=== PATIENT | male | born 1945 | race American Indian/Alaskan Native ===

== ENCOUNTER 2018-01-27 09:22 | Day surgery (SDC) | payer MEDICARE ==
[~2018-01-27 09:22] MED LIST: ANCEF/STERILE WATER 2 GM/20 ML 2 GM/20 ML SYRINGE IV NR; NACL 0.9% 1000 ML 1,000 ML IV SCH
[2018-01-27 10:37] LABS: Basophils # (Auto) 0.1 K/mm3 (0.0-0.1); Basophils % (Auto) 0.9 % (0.0-1.8); Eosinophils # (Auto) 0.2 K/mm3 (0.0-0.4); Eosinophils % (Auto) 2.9 % (0.0-4.3); Hematocrit 39.4 % (35.5-45.6); Hemoglobin 13.9 gm/dl (11.8-15.2); Lymphocytes % (Auto) 26.9 % (13.4-35.0); Mean Corpuscular HGB Conc 35 % (32-34); Mean Corpuscular Hemoglobin 33 pg (28-32); Mean Corpuscular Volume 94 fl (84-94); Monocytes # (Auto) 0.4 K/mm3 (0.0-0.8); Monocytes % (Auto) 5.8 % (0.0-7.3); Platelet Count 176 K/mm3 (140-440); Red Blood Count 4.21 M/mm3 (3.65-5.03); Red Cell Distribution Width 12.7 % (13.2-15.2)
[2018-01-27 10:50] LABS: INR 0.9 (0.87-1.13)
[2018-01-27 10:51] LABS: Partial Thromboplastin Time 25.2 Sec. (24.2-36.6)
[2018-01-27 11:01] LABS: BUN/Creatinine Ratio 17; Blood Urea Nitrogen 15 mg/dL (9-20); Calcium 9.1 mg/dL (8.4-10.2); Hemolysis Index 3
[2018-01-27] MEDS ORDERED: HEPARIN/NS 5000 UNIT/500ML(CATH LAB) 1,000 ML IR ONE (12:15)
[2018-01-27] MEDS ORDERED: HEPARIN 10,000 UNITS/10 ML ONE (12:15)
[2018-01-27] MEDS ORDERED: XYLOCAINE 2% INFILTRATI ONE (12:15)
--- NOTE | 2018-01-27 12:22 | Short Stay Summary ---
Short Stay Documentation Date of service: 01/27/18 - History Principal diagnosis: bilateral hand numbness and tingling episodic in nature H&P: obtained from office - Allergies and Medications Current Medications: Allergies CRAWFISH Adverse Reaction (Uncoded 12/29/12 07:58) Unknown Home Medications Medication Instructions Recorded Confirmed Last Taken Type Aspirin [Aspirin BABY CHEW TAB] 81 mg PO ONCE 12/23/12 01/27/18 01/26/18 History 81mg Multivitamin [Multi-Vitamin Daily] 1 tab PO DAILY 12/23/12 01/27/18 01/26/18 History 1 tab Simvastatin 40 mg PO QHS 12/23/12 01/27/18 01/26/18 History 40mg hydroCHLOROthiazide [HCTZ] 25 mg PO QDAY 12/23/12 01/27/18 01/26/18 History 25mg Gabapentin [Neurontin] 300 mg PO BID 01/27/18 01/27/18 01/26/18 History 300mg Krill/Om-3/Dha/Epa/Phospho/Ast 1 cap PO DAILY 01/27/18 01/27/18 01/26/18 History [Megared [place]-3 Krill Oil Sfgl] 1 cap Latanoprost 0.005% 1 drop INTRAOCULA 01/27/18 01/26/18 History 1 drop Tamsulosin [Flomax] 0.4 mg PO DAILY 01/27/18 01/27/18 01/26/18 History 0.4mg amLODIPine [Norvasc] 5 mg PO DAILY 01/27/18 01/27/18 01/27/18 08:00 History 5mg metFORMIN [Glucophage] 500 mg PO DAILY 01/27/18 01/27/18 01/26/18 History 500mg Active Medications Cefazolin Sodium (Ancef/Sterile Water 2 Gm/20 Ml) 2 gm in 20 mls @ 80 mls/hr IV PREOP NR; Protocol Stop: 01/27/18 23:59 Sodium Chloride (Nacl 0.9% 1000 Ml) 1,000 mls @ 42 mls/hr IV DIRECT MEAGAN Last Admin: 01/27/18 11:28 Dose: 42 mls/hr - Brief post op/procedure progress note Date of procedure: 01/27/18 Pre-op diagnosis: numbness and tingling intermittently in his hands, concern for vasculitis Post-op diagnosis: same Procedure: Left upper extremity angiogram with provocation Anesthesia: local Surgeon: GAIL GARZA Estimated blood loss: minimal Pathology: none Condition: stable - Disposition Condition at discharge: Good Disposition: [id number] TO HOME OR SELFCARE Short Stay Discharge Plan Activity: advance as tolerated Weight Bearing Status: Weight Bear as Tolerated Diet: regular Wound: keep clean and dry, per your surgeon's advice Follow up with: PRIMARY CARE, [Primary Care Provider] - 7 Days
[2018-01-27] MEDS ORDERED: VERSED ONE (12:34)
[2018-01-27] MEDS ORDERED: SUBLIMAZE ONE (12:34)
--- NOTE | 2018-01-27 13:15 | Operative Report ---
Operative Report Operative Report: Exam: Left upper extremity angiogram with provocation Clinical indication: Patient with a history of intermittent tingling of his hands, normal arterial inflow to the hands Date: 01/27/2018 Procedure: Following Ablation of the risks, benefits and alternatives; and informed consent was obtained. Patient was brought to the antibiotics suite and placed in supine position on the examination table. Initial ultrasound evaluation of the groin demonstrated a patent right common femoral artery. The patient's right groin was prepped and draped in the usual sterile fashion. 1% lidocaine was used for anesthesia. Under ultrasound guidance, the right common femoral artery was cannulated with a 7 cm 21-gauge needle. A 0.0 on a guidewire was advanced centrally. The needle was removed and a micro-sheath placed. The 0.018 guidewire was a change free 0.035 guidewire and the microsleep exchanged for a 5 F[place]ian vascular sheath. A 5 [place]ijian vertebral catheter and guidewire were then manipulated under fluoroscopy to the aortic arch. Attempts to cannulate it of the right brachial cephalic artery or the left subclavian artery were unsuccessful. The vertebral catheter was exchanged for a JR 3.55 [place]ian coronary catheter and selective catheterization of the left subclavian artery was performed. The catheter was advanced into the axillary artery and angiography performed of the left upper extremity from axilla to hand. There is normal arterial inflow with no hemodynamically significant stenosis. The ulnar artery is dominant to the hand. The digital vessels appear intact. An ice bag was then placed on the patient's hand for 20 seconds for provocation. Additional angiography was then performed. This demonstrates no significant reduction of the blood flow to the digital vessels. At this point, the catheters, guidewires and sheaths were removed and hemostasis achieved using an Angio-Seal arterial closure device in a sterile compression dressing was in place. The patient tolerated the procedure well. There were no immediate post procedure complications. Conscious sedation was performed under the guidance or radiologic nursing. Continuous cardiopulmonary monitoring was utilized. Impression: 1) Left upper extremity angiogram demonstrating normal arterial inflow to the digital vessels. 2) Provocation with ice demonstrating persistent normal arterial inflow, the patient likely does not have Raynaud's as an explanation for his intermittent tingling
[2018-01-27 15:16] VITALS: BP 133/85
== END 2018-01-27 15:37 | disposition home or self-care (01) ==
LOC: CATHLABREC 09:22
PROVIDERS: ATTEND Radiology Diagnostic Radiology
DX: I87.323 Chronic venous hypertension (idiopathic) with inflammation of bilateral lower extremity (principal); K21.9 Gastro-esophageal reflux disease without esophagitis; M19.90 Unspecified osteoarthritis, unspecified site; E78.00 Pure hypercholesterolemia, unspecified; I10 Essential (primary) hypertension; E11.42 Type 2 diabetes mellitus with diabetic polyneuropathy; Z79.01 Long term (current) use of anticoagulants; Z79.82 Long term (current) use of aspirin; Z79.899 Other long term (current) drug therapy; Z79.84 Long term (current) use of oral hypoglycemic drugs; Z91.018 Allergy to other foods; Z87.891 Personal history of nicotine dependence; Z72.89 Other problems related to lifestyle; Z85.9 Personal history of malignant neoplasm, unspecified; Z83.3 Family history of diabetes mellitus; Z80.1 Family history of malignant neoplasm of trachea, bronchus and lung
CPT/HCPCS: 36215; 36415; 75710; 80048; 82962; 85025; 85610; 85730; 99156; 99157; C1760; C1769; J1644; J2250; J3010; J7030; 36216; Q9967